=== PATIENT | male | born 1980 | race Caucasian/White ===

== ENCOUNTER 2024-01-11 11:50 | Emergency (ER) | payer OTHER ==
[~2024-01-11] VITALS: Ht 172.7 cm; Wt 98.0 kg
[2024-01-11] MEDS ORDERED: OMEG100033 PO (11:54)
[2024-01-11] MEDS ORDERED: CHOL400T56 PO (11:54)
[2024-01-11 11:57] VITALS: BP 115/76; PULSE 76; RESP 16; TEMP 98.3; O2SAT 98
[2024-01-11] MEDS: IBUPROFEN 600 MG TABLET PO ONE (12:33)
[2024-01-11] MEDS: ACETAMINOPHEN 500 MG TABLET PO ONE (12:33)
[2024-01-11] MEDS: LIDOCAINE 5% TRANSDERMAL PATCH TD ONE (12:34)
[2024-01-11] MEDS ORDERED: IBUP-1492 PO (13:47)
[2024-01-11] MEDS ORDERED: LIDO700A15 TP (13:47)
[2024-01-11] MEDS ORDERED: ACET-3385 PO (13:47)
== END 2024-01-11 14:03 | disposition home or self-care (01) ==
LOC: EMS 11:50
DX: S30.0XXA Contusion of lower back and pelvis, initial encounter (principal); S00.01XA Abrasion of scalp, initial encounter; M54.2 Cervicalgia; W11.XXXA Fall on and from ladder, initial encounter; Y93.89 Activity, other specified; Y92.89 Other specified places as the place of occurrence of the external cause; Y99.8 Other external cause status
CPT/HCPCS: 70450; 72125; 72128; 72131; 99284